=== PATIENT | female | born 1995 | race Caucasian/White ===

== ENCOUNTER → 2017-06-23 15:28 | Outpatient (CLI) | payer OTHER | END | disposition home or self-care (01) | LOC: D.RT 15:28 | DX: R00.0 Tachycardia, unspecified (principal) ==

== ENCOUNTER → 2017-10-28 15:15 | Outpatient (CLI) | payer OTHER ==
[2017-10-28 15:52] LABS: APPEARANCE CLEAR (CLEAR); BILIRUBIN NEGATIVE (NEGATIVE); COLOR YELLOW (YELLOW); GLUCOSE NEGATIVE (NEGATIVE); KETONE NEGATIVE (NEGATIVE); NITRITE NEGATIVE (NEGATIVE); PROTEIN NEGATIVE (NEGATIVE); SPECIFIC GRAVITY 1.025 (1.005-1.020); UROBILINOGEN NORMAL (NORMAL)
== END | disposition home or self-care (01) ==
LOC: D.LDO 15:15
PROVIDERS: Obstetrics & Gynecology
DX: O16.9 Unspecified maternal hypertension, unspecified trimester (principal); Z3A.00 Weeks of gestation of pregnancy not specified

== ENCOUNTER → 2017-11-19 11:58 | Outpatient (CLI) | payer OTHER ==
[~2017-11-19 11:58] MED LIST: HYDROCODONE-APA1 TAB PO; IBUPROFEN600 MG PO; PRENATAL COMPLE1 TAB PO
[2017-12-03 12:56] VITALS: BMI 37.1
== END | disposition home or self-care (01) ==
LOC: D.LDO 11:58
DX: O16.3 Unspecified maternal hypertension, third trimester (principal); Z3A.37 37 weeks gestation of pregnancy

== ENCOUNTER → 2017-11-24 14:23 | Outpatient (CLI) | payer OTHER ==
[2017-12-03 12:56] VITALS: BMI 37.1
== END | disposition home or self-care (01) ==
LOC: D.LDO 14:23
DX: O16.3 Unspecified maternal hypertension, third trimester (principal); Z3A.37 37 weeks gestation of pregnancy

== ENCOUNTER → 2017-11-27 15:58 | Outpatient (CLI) | payer OTHER ==
[2017-12-03 12:56] VITALS: BMI 37.1
== END | disposition home or self-care (01) ==
LOC: D.LDO 15:58
DX: O16.3 Unspecified maternal hypertension, third trimester (principal); Z3A.38 38 weeks gestation of pregnancy

== ENCOUNTER 2017-12-03 10:37 | Inpatient (IN) | payer OTHER ==
[~2017-12-03] VITALS: Ht 172.7 cm; Wt 110.9 kg
--- NOTE | ~2017-12-03 | OP ---
PATIENT NAME: PASQUALE ALVARADO MEDICAL RECORD: [id number] :95 LOCATION:[id number] ADMISSION DATE:12/03/17 SURGEON: CHALO VELASQUEZ MD DATE OF OPERATION: 12/04/2017 PREOPERATIVE DIAGNOSES: 1. Gestational hypertension at 39 weeks. 2. Failed induction of labor. POSTOPERATIVE DIAGNOSES: 1. Gestational hypertension at 39 weeks. 2. Failed induction of labor. PROCEDURE: A primary low transverse section. SURGEON: Chalo Velasquez MD ESTIMATED BLOOD LOSS: 1000 cc. INTRAVENOUS FLUIDS: Per anesthesia record. ANESTHESIA: Regional. SPECIMENS: Placenta and cord for gases. COMPLICATIONS: None apparent. FINDINGS: 1. Viable male , Apgars 9 at 1 and 9 at 5. 2. Placenta delivered, manually intact, 3-vessel cord noted. 3. Normal adnexa bilaterally. DESCRIPTION OF PROCEDURE: The patient was taken to the operating room where regional anesthesia was achieved without difficulty. The patient was then prepped and draped in normal sterile fashion in the dorsal supine position. SCDs were on and functioning normally. A Swann catheter had been in place and was draining freely. Following prep and drape, a Pfannenstiel skin incision was made, extended downward to the underlying subcutaneous fat to level of the fascia which was then excised in midline and extended bilaterally using the Velazquez scissors. Superior and inferior aspects of the fascial incision were then grasped with Lynn clamps times 2, tented upward, and sharply dissected from the underlying rectus muscle using the Velazquez scissors and Bovie cautery. Rectus muscles were then bluntly in the midline and the peritoneum entered sharply at the superior aspect of the incision. Peritoneal incision was extended bilaterally using the Metzenbaum scissors and a bladder blade was placed into the pelvis. A bladder flap was created by excising the anterior leaf of the broad ligament across the lower uterine segment using the Metzenbaum scissors. The bladder blade was then replaced over the bladder flap. A low transverse incision was made on the uterus which was then extended superiorly and inferiorly using the Pelosi method. The infant's head was then delivered atraumatically followed by the body. was bulb suctioned upon delivery. Cord was clamped times 2, cut, and was handed to awaiting nursery team. Cord was then obtained for gases and the placenta was removed manually intact, 3-vessel cord was noted. The uterus was then exteriorized, cleared of all clots and debris and vigorously massaged until good uterine tone was noted. Uterus OPERATIVE REPORT [id number] PASQUALE ALVARADO was then repaired using 0 Vicryl in a running locked fashion times 2 with good hemostasis noted. Posterior cul-de-sac was then thoroughly irrigated and uterus was replaced into the pelvis. The uterine incision was again found to be hemostatic and the anterior cul-de-sac was then thoroughly irrigated. Counts were correct times 2 for needles, sponges, and instruments. The fascia was repaired with 0 loop PDS times 1 and skin repaired with ethel. The patient tolerated procedure well, transferred to postanesthesia recovery stable without incident. TRANSINT:[id number] Voice Confirmation ID: [id number] DOCUMENT ID: [id number] CHALO VELASQUEZ MD at 1723 CC: [id number] DICTATION DATE: 12/27/17626 LOADMASTER: 12/27/17 1132 DIS IN 12/06/17 [facility] [address] [place] [address]
--- NOTE | ~2017-12-03 | OP ---
PATIENT NAME: PASQUALE ALVARADO MEDICAL RECORD: [id number] :95 LOCATION:[id number] ADMISSION DATE:12/03/17 SURGEON: CHALO VELASQUEZ MD DATE OF OPERATION: 12/04/2017 PREOPERATIVE DIAGNOSES: 1. Gestational hypertension at 39 weeks. 2. Asthma. 3. Suspected borderline macrosomia. 4. Failed induction of labor. PROCEDURE: A primary low transverse section. SURGEON: Chalo Velasquez MD ANESTHESIA: Regional. INTRAVENOUS FLUIDS: Per anesthesia record. ESTIMATED BLOOD LOSS: 1000 cc. SPECIMENS: Placenta and cord for gases. FINDINGS: 1. A viable male infant, Apgars 9 at 1 and 9 at 5. 2. Placenta delivered manually intact, 3-vessel cord noted. 3. Grossly normal adnexa bilaterally. COMPLICATIONS: None apparent. PROCEDURE IN DETAIL: The patient was taken to the operating room where regional anesthesia was achieved without difficulty. The patient was then prepped and draped in normal sterile fashion in the dorsal supine position. SCDs were on and functioning normally. A Swann catheter had been placed and was draining freely. The patient was then prepped and draped. The anesthetic field was then checked and found to be adequate. A Pfannenstiel skin incision was then made, extended downward to the underlying subcutaneous fat to the level of the fascia, which was excised in the midline using the scalpel. This was then extended bilaterally using the Velazquez scissors. The superior and inferior aspects of the fascial incision were then grasped with Lynn clamps times 2, tented upward, and sharply dissected from the underlying rectus muscle using the Bovie cautery and the Velazquez scissors. The rectus muscles were then bluntly in the midline and the peritoneum was entered at the superior aspect of the incision using the Metzenbaum scissors. Careful dissection was then performed of the peritoneum under direct visualization of the bladder. A bladder blade was then placed into the pelvis and a bladder flap created by excising the anterior leaf of the broad ligament across the lower uterine segment. A bladder flap was then fully developed and the bladder blade replaced. A low transverse incision was made and then extended using the Pelosi method. The vertex was then delivered atraumatically followed by the body. The infant was bulb suctioned upon delivery of the head. Cord was clamped times 2, cut, and the was handed to the awaiting nursery team. Cord was then obtained for gases and the placenta was delivered manually intact, 3-vessel cord was noted. The uterus was then exteriorized, cleared of all clots and debris and then vigorously massaged until good uterine tone was noted. The uterine incision was repaired with 0 OPERATIVE REPORT [id number] PASQUALE ALVARADO Vicryl in a running locked fashion times 2 with good hemostasis noted. Posterior cul-de-sac was then thoroughly irrigated and uterus was placed into the pelvis. Anterior cul-de-sac was then thoroughly irrigated and the uterine incision was again found to be hemostatic. The fascia was then repaired with 0 loop PDS times 1 following correct counts of sponges, needles and instruments. The skin was then repaired with ethel. The patient tolerated the procedure well, was transferred to postanesthesia recovery stable without incident. TRANSINT:[id number] Voice Confirmation ID: [id number] DOCUMENT ID: [id number] CHALO VELASQUEZ MD at 1614 CC: [id number] DICTATION DATE: 01/10/18616 ORDER SELECTOR: 01/10/18 0809 DIS IN 12/06/17 [facility] [address] [place] [address]
[2017-12-03 12:02] LABS: BASOPHILS 0.1 % (0-2); EOSINOPHILS 0.3 % (0-7); HEMATOCRIT 31.5 % (36.0-48.0); HEMOGLOBIN 10.1 g/dL (12-16); IMMATURE GRANULOCYTES 0.7 % (0-5); LYMPHOCYTES 22.9 % (15-50); MCH 27.2 pg (26.0-34.0); MCHC 32.1 g/dL (31.0-37.0); MCV 84.7 fL (80.0-100.0); MEAN PLATELET VOLUME 10.7 fL (7.4-10.4); MONOCYTES 8.4 % (2-11); NEUTROPHILS 67.6 % (40-80); PLATELET COUNT 242 10x3/uL (130-400); RBC 3.72 10x6/uL (4.00-5.40); RDW 14.9 % (11.5-14.5); WBC 9.2 10x3/uL (4.8-10.8)
[2017-12-03 12:21] LABS: APPEARANCE CLEAR (CLEAR); BILIRUBIN NEGATIVE (NEGATIVE); COLOR YELLOW (YELLOW); GLUCOSE NEGATIVE (NEGATIVE); KETONE NEGATIVE (NEGATIVE); NITRITE NEGATIVE (NEGATIVE); PROTEIN NEGATIVE (NEGATIVE); UROBILINOGEN NORMAL (NORMAL)
[2017-12-03 12:22] LABS: BACTERIA MANY /hpf (NONE SEEN); MUCUS >1+ /lpf (NONE SEEN); RED CELLS - URINE 0-5 /hpf (0-5)
[2017-12-03 12:29] LABS: ALBUMIN 2.4 g/dL (3.4-5.0); ALKALINE PHOSPHATASE 141 U/L (46-116); ALT (SGPT) 13 U/L (10-68); BILIRUBIN - TOTAL 0.27 mg/dL (0.2-1.3); CALC OSMOLALITY 268 mosm/kg (275-300); CALCIUM 9.1 mg/dL (8.5-10.1); CARBON DIOXIDE 20.3 mmol/L (21.0-32.0); CHLORIDE - SERUM 104 mmol/L (98-107); CREATININE - SERUM 0.6 mg/dL (0.6-1.3); GLUCOSE 75 mg/dL (74-106); POTASSIUM - SERUM 4.2 mmol/L (3.5-5.1); PROTEIN - SERUM 6.6 g/dL (6.4-8.2); SODIUM 136 mmol/L (136-145); UREA NITROGEN 6 mg/dL (7-18); eGFR NON AFRICAN AMERICAN > 90 mL/min (90-120)
[2017-12-03 12:56] VITALS: BP 144/85; Ht 172.7 cm; Wt 110.9 kg
[2017-12-04] VITALS (13 sets, daily range): BP systolic 120–147; BP diastolic 61–78
[2017-12-04 06:14] LABS: RAPID PLASMA REAGIN Non Reactive (Non Reactive)
[2017-12-04 20:11] LABS: BASOPHILS 0.1 % (0-2); EOSINOPHILS 0.3 % (0-7); HEMATOCRIT 28.3 % (36.0-48.0); IMMATURE GRANULOCYTES 0.5 % (0-5); LYMPHOCYTES 23.3 % (15-50); MCH 26.8 pg (26.0-34.0); MCHC 31.8 g/dL (31.0-37.0); MCV 84.2 fL (80.0-100.0); MEAN PLATELET VOLUME 10.3 fL (7.4-10.4); MONOCYTES 7.6 % (2-11); NEUTROPHILS 68.2 % (40-80); RBC 3.36 10x6/uL (4.00-5.40); RDW 14.9 % (11.5-14.5); WBC 10.9 10x3/uL (4.8-10.8)
[2017-12-04 20:15] LABS: PLATELET COUNT 174 10x3/uL (130-400)
[2017-12-05 02:30] VITALS: BP 127/73
[2017-12-05] MEDS ORDERED: PRENATAL COMPLE1 TAB PO (05:59)
[2017-12-05 06:01] LABS: BASOPHILS 0.1 % (0-2); EOSINOPHILS 0.4 % (0-7); HEMOGLOBIN 8.7 g/dL (12-16); IMMATURE GRANULOCYTES 0.3 % (0-5); LYMPHOCYTES 23.9 % (15-50); MCH 27.1 pg (26.0-34.0); MCHC 32.2 g/dL (31.0-37.0); MCV 84.1 fL (80.0-100.0); MEAN PLATELET VOLUME 10.2 fL (7.4-10.4); MONOCYTES 8.7 % (2-11); NEUTROPHILS 66.6 % (40-80); PLATELET COUNT 167 10x3/uL (130-400); RBC 3.21 10x6/uL (4.00-5.40); WBC 9.2 10x3/uL (4.8-10.8)
[2017-12-05 07:23] VITALS: BP 132/83
[2017-12-05 13:32] VITALS: BP 126/68
[2017-12-05 17:44] VITALS: BP 126/73
[2017-12-05 19:56] VITALS: BP 135/83
[2017-12-06] MEDS ORDERED: HYDROCODONE-APA1 TAB PO (07:54)
[2017-12-06] MEDS ORDERED: IBUPROFEN600 MG PO (07:55)
[2017-12-06 08:03] VITALS: BP 133/72
== END 2017-12-06 11:50 | disposition home or self-care (01) | DRG 766 ==
LOC: D.LDO 10:37 → D.LD 11:55
PROVIDERS: Obstetrics & Gynecology
PROC: 10D00Z1 Extraction of Products of Conception, Low, Open Approach (ICD-10-PCS; principal; 2017-12-04 09:00)
DX: O61.0 Failed medical induction of labor (principal); O13.4 Gestational [pregnancy-induced] hypertension without significant proteinuria, complicating childbirth; O99.214 Obesity complicating childbirth; O99.824 Streptococcus B carrier state complicating childbirth; O36.63X0 Maternal care for excessive fetal growth, third trimester, not applicable or unspecified; Z3A.39 39 weeks gestation of pregnancy; Z37.0 Single live birth

== ENCOUNTER → 2019-05-22 10:14 | Outpatient (CLI) | payer OTHER ==
[2017-12-03 12:56] VITALS: BMI 37.1
[~2019-05-22 10:14] MED LIST changes: +NORMODYNE / TR200 MG PO
[2019-05-22 10:33] LABS: PROTEIN - URINE 7.3 mg/dL (0.0-11.9)
== END | disposition home or self-care (01) ==
LOC: D.LDO 10:14
PROVIDERS: ATTEND Obstetrics & Gynecology
DX: O26.899 Other specified pregnancy related conditions, unspecified trimester (principal); Z3A.00 Weeks of gestation of pregnancy not specified

== ENCOUNTER → 2019-06-01 15:35 | Outpatient (CLI) | payer OTHER ==
[2017-12-03 12:56] VITALS: BMI 37.1
== END | disposition home or self-care (01) ==
LOC: D.LDO 15:35
PROVIDERS: ATTEND Obstetrics & Gynecology
DX: O26.899 Other specified pregnancy related conditions, unspecified trimester (principal); Z3A.00 Weeks of gestation of pregnancy not specified; R03.0 Elevated blood-pressure reading, without diagnosis of hypertension

== ENCOUNTER → 2019-06-21 18:09 | Outpatient (CLI) | payer OTHER ==
[2017-12-03 12:56] VITALS: BMI 37.1
[~2019-06-21 18:09] MED LIST changes: +NORMODYNE / TR100 MG PO
== END | disposition home or self-care (01) ==
LOC: D.LDO 18:09
PROVIDERS: ATTEND Obstetrics & Gynecology
DX: O36.8130 Decreased fetal movements, third trimester, not applicable or unspecified (principal); Z3A.28 28 weeks gestation of pregnancy

== ENCOUNTER → 2019-07-02 09:51 | Outpatient (CLI) | payer OTHER ==
[2017-12-03 12:56] VITALS: BMI 37.1
== END | disposition home or self-care (01) ==
LOC: D.LDO 09:51
PROVIDERS: ATTEND Obstetrics & Gynecology
DX: O16.9 Unspecified maternal hypertension, unspecified trimester (principal)

== ENCOUNTER → 2019-07-06 09:49 | Outpatient (CLI) | payer OTHER ==
[2017-12-03 12:56] VITALS: BMI 37.1
== END | disposition home or self-care (01) ==
LOC: D.LDO 09:49
PROVIDERS: ATTEND Obstetrics & Gynecology
DX: O16.3 Unspecified maternal hypertension, third trimester (principal); Z3A.30 30 weeks gestation of pregnancy

== ENCOUNTER → 2019-07-09 08:12 | Outpatient (CLI) | payer OTHER ==
[2017-12-03 12:56] VITALS: BMI 37.1
== END | disposition home or self-care (01) ==
LOC: D.LDO 08:12
PROVIDERS: ATTEND Obstetrics & Gynecology
DX: O35.9XX0 Maternal care for (suspected) fetal abnormality and damage, unspecified, not applicable or unspecified (principal)

== ENCOUNTER → 2019-07-13 09:18 | Outpatient (CLI) | payer OTHER ==
[2017-12-03 12:56] VITALS: BMI 37.1
== END | disposition home or self-care (01) ==
LOC: D.LDO 09:18
PROVIDERS: ATTEND Obstetrics & Gynecology
DX: O16.3 Unspecified maternal hypertension, third trimester (principal)

== ENCOUNTER → 2019-07-16 08:50 | Outpatient (CLI) | payer OTHER ==
[2017-12-03 12:56] VITALS: BMI 37.1
== END | disposition home or self-care (01) ==
LOC: D.LDO 08:50
PROVIDERS: ATTEND Obstetrics & Gynecology
DX: O35.9XX0 Maternal care for (suspected) fetal abnormality and damage, unspecified, not applicable or unspecified (principal)

== ENCOUNTER 2019-07-20 08:40 | Outpatient (CLI) | payer OTHER ==
[2017-12-03 12:56] VITALS: BMI 37.1
== END 2019-07-20 09:30 | disposition home or self-care (01) ==
LOC: D.LDO 08:40
PROVIDERS: ATTEND Obstetrics & Gynecology
DX: O10.919 Unspecified pre-existing hypertension complicating pregnancy, unspecified trimester (principal)

== ENCOUNTER → 2019-07-23 08:01 | Outpatient (CLI) | payer OTHER ==
[2017-12-03 12:56] VITALS: BMI 37.1
== END | disposition home or self-care (01) ==
LOC: D.LDO 08:01
PROVIDERS: ATTEND Obstetrics & Gynecology
DX: O10.919 Unspecified pre-existing hypertension complicating pregnancy, unspecified trimester (principal)

== ENCOUNTER → 2019-07-27 10:34 | Outpatient (CLI) | payer OTHER ==
[2017-12-03 12:56] VITALS: BMI 37.1
== END | disposition home or self-care (01) ==
LOC: D.LDO 10:34
PROVIDERS: ATTEND Obstetrics & Gynecology
DX: O16.3 Unspecified maternal hypertension, third trimester (principal); Z3A.33 33 weeks gestation of pregnancy

== ENCOUNTER → 2019-07-29 19:49 | Outpatient (CLI) | payer OTHER ==
[2017-12-03 12:56] VITALS: BMI 37.1
[2019-07-29 20:17] LABS: BASOPHILS 0.1 % (0-2); EOSINOPHILS 1.2 % (0-7); HEMOGLOBIN 10.2 g/dL (12-16); IMMATURE GRANULOCYTES 0.7 % (0-5); LYMPHOCYTES 25.6 % (15-50); MCH 28.4 pg (26.0-34.0); MCHC 31.9 g/dL (31.0-37.0); MCV 89.1 fL (80.0-100.0); MEAN PLATELET VOLUME 9.8 fL (7.4-10.4); MONOCYTES 8.9 % (2-11); NEUTROPHILS 63.5 % (40-80); PLATELET COUNT 259 10x3/uL (130-400); RBC 3.59 10x6/uL (4.00-5.40); WBC 9.5 10x3/uL (4.8-10.8)
[2019-07-29 20:18] LABS: APPEARANCE CLEAR (CLEAR); BILIRUBIN NEGATIVE (NEGATIVE); COLOR YELLOW (YELLOW); GLUCOSE NEGATIVE (NEGATIVE); KETONE NEGATIVE (NEGATIVE); NITRITE NEGATIVE (NEGATIVE); PROTEIN NEGATIVE (NEGATIVE); SPECIFIC GRAVITY 1.025 (1.005-1.020); UROBILINOGEN NORMAL (NORMAL)
[2019-07-29 20:25] LABS: CALC OSMOLALITY 279 mosm/kg (275-300); CALCIUM 8.9 mg/dL (8.5-10.1); CARBON DIOXIDE 26.5 mmol/L (21.0-32.0); CHLORIDE - SERUM 105 mmol/L (98-107); CREATININE - SERUM 0.7 mg/dL (0.6-1.3); GLUCOSE 106 mg/dL (74-106); SODIUM 141 mmol/L (136-145); UREA NITROGEN 9 mg/dL (7-18); eGFR NON AFRICAN AMERICAN > 90 mL/min (90-120)
[2019-07-29 20:31] LABS: ALBUMIN 2.6 g/dL (3.4-5.0); ALKALINE PHOSPHATASE 94 U/L (46-116); ALT (SGPT) 15 U/L (10-68); BILIRUBIN - DIRECT 0.08 mg/dL (0.00-0.30); BILIRUBIN - INDIRECT 0.21 mg/dL (0.00-1.00); BILIRUBIN - TOTAL 0.29 mg/dL (0.2-1.3); PROTEIN - SERUM 6.8 g/dL (6.4-8.2); URIC ACID 4.3 mg/dL (2.6-7.2)
== END | disposition home or self-care (01) ==
LOC: D.LDO 19:49
PROVIDERS: ATTEND Obstetrics & Gynecology
DX: O26.893 Other specified pregnancy related conditions, third trimester (principal); Z3A.34 34 weeks gestation of pregnancy; R42 Dizziness and giddiness; H53.8 Other visual disturbances

== ENCOUNTER → 2019-08-02 15:36 | Outpatient (CLI) | payer OTHER ==
[2017-12-03 12:56] VITALS: BMI 37.1
== END | disposition home or self-care (01) ==
LOC: D.LDO 15:36
PROVIDERS: ATTEND Obstetrics & Gynecology
DX: O10.919 Unspecified pre-existing hypertension complicating pregnancy, unspecified trimester (principal)

== ENCOUNTER → 2019-08-06 08:11 | Outpatient (CLI) | payer OTHER ==
[2017-12-03 12:56] VITALS: BMI 37.1
== END | disposition home or self-care (01) ==
LOC: D.LDO 08:11
PROVIDERS: ATTEND Obstetrics & Gynecology
DX: O16.3 Unspecified maternal hypertension, third trimester (principal); Z3A.35 35 weeks gestation of pregnancy

== ENCOUNTER → 2019-08-10 09:43 | Outpatient (CLI) | payer OTHER ==
[2017-12-03 12:56] VITALS: BMI 37.1
== END | disposition home or self-care (01) ==
LOC: D.LDO 09:43
PROVIDERS: ATTEND Obstetrics & Gynecology
DX: O35.9XX0 Maternal care for (suspected) fetal abnormality and damage, unspecified, not applicable or unspecified (principal)

== ENCOUNTER → 2019-08-17 09:39 | Outpatient (CLI) | payer OTHER ==
[2017-12-03 12:56] VITALS: BMI 37.1
== END | disposition home or self-care (01) ==
LOC: D.LDO 09:39
PROVIDERS: ATTEND Obstetrics & Gynecology
DX: O16.3 Unspecified maternal hypertension, third trimester (principal); Z3A.36 36 weeks gestation of pregnancy

== ENCOUNTER 2019-08-20 07:30 | Inpatient (IN) | payer OTHER ==
[~2019-08-20] VITALS: Ht 172.7 cm; Wt 112.3 kg
[2019-08-27] VITALS (10 sets, daily range): BP systolic 109–129; BP diastolic 55–76; Ht 172.7 cm; Wt 112.3 kg
[2019-08-27] MEDS ORDERED: AMOXICILLIN500 M1 PO (05:22)
[2019-08-27 06:19] LABS: HEMATOCRIT 31.3 % (36.0-48.0); HEMOGLOBIN 10.3 g/dL (12-16); MCH 27.9 pg (26.0-34.0); MCHC 32.9 g/dL (31.0-37.0); MCV 84.8 fL (80.0-100.0); RBC 3.69 10x6/uL (4.00-5.40); RDW 14.4 % (11.5-14.5); WBC 9.6 10x3/uL (4.8-10.8)
[2019-08-27 07:59] LABS: APPEARANCE HAZY (CLEAR); BACTERIA MODERATE /hpf (NEGATIVE); BILIRUBIN NEGATIVE (NEGATIVE); COLOR YELLOW (YELLOW); EPITHELIAL CELLS 0-5 /hpf (0-5); GLUCOSE NEGATIVE (NEGATIVE); KETONE NEGATIVE (NEGATIVE); NITRITE NEGATIVE (NEGATIVE); PROTEIN NEGATIVE (NEGATIVE); RED CELLS - URINE NONE SEEN /hpf (0-5); SPECIFIC GRAVITY 1.025 (1.005-1.020); UROBILINOGEN NORMAL (NORMAL); WHITE CELLS - URINE OCC /hpf (NEGATIVE)
--- NOTE | 2019-08-27 08:49 | NUR ---
0839 BABY 0840 PLACENTA
--- NOTE | 2019-08-27 10:00 | NUR ---
RECEIVED PT FROM VIA BED TO ROOM 1278. BED LOCKED AND PLACED IN LOW POSITION. VSS. HRRR WITHOUT AUDIBLE MURMUR. BBS CLEAR. BS HYPOACTIVE. ABDOMEN SOFT/NON-DISTENDED. FUNDUS FIRM AT U/U. RUBRA LOCHIA SMALL AMT. ABDOMINAL DRESSING DRY WITHOUT DRAINAGE NOTED. NEG HOMANS' SIGN. PPP. MILD, NON-PITTING EDEMA NOTED TO BLE. SCDS ON BLE. PUMP ON. STOREY TO GRAVIY DRAINING DARK, YELLOW URINE. PIV SITE CLEAR TO RIGHT WRIST. NS WITH PITOCIN 20 UNITS INFUSING AT 125 ML/HR. PT DENIES PAIN. ICE PACK TO INCISION. SR UP X 2. CALL LIGHT IN REACH.
--- NOTE | 2019-08-27 10:14 | NUR ---
DILAUDID WARP TYING MACHINE TENDER STARTED. PT INSTRUCTED ON MED AND USE OF BUTTON. VERBALIZES UNDERSTANDING.
--- NOTE | 2019-08-27 11:30 | NUR ---
FUNDUS FIRM AT U/1. RUBRA LOCHIA SMALL AMT. NO CLOTS EXPRESSED. PERIPADS CHANGED. PT DENIES PAIN OR NEEDS.
--- NOTE | 2019-08-27 12:44 | NUR ---
PT SITTING UP IN BED. CONSUMING CLEAR LIQUID DIET. TOLERATING WELL. DENIES C/O OR NEEDS.
[2019-08-27 13:54] LABS: BASOPHILS 0.1 % (0-2); EOSINOPHILS 0.3 % (0-7); HEMATOCRIT 30.8 % (36.0-48.0); HEMOGLOBIN 9.8 g/dL (12-16); IMMATURE GRANULOCYTES 0.6 % (0-5); LYMPHOCYTES 22.3 % (15-50); MCH 27.2 pg (26.0-34.0); MCHC 31.8 g/dL (31.0-37.0); MCV 85.6 fL (80.0-100.0); MEAN PLATELET VOLUME 9.9 fL (7.4-10.4); MONOCYTES 5.2 % (2-11); NEUTROPHILS 71.5 % (40-80); PLATELET COUNT 216 10x3/uL (130-400); RDW 14.4 % (11.5-14.5)
[2019-08-27 14:02] LABS: WBC 12.1 10x3/uL (4.8-10.8)
--- NOTE | 2019-08-27 14:32 | NUR ---
PERICARE DONE. FUNDUS FIRM AT U/1. RUBRA LOCHIA SMALL AMT. CHUX AND PERIPADS CHANGED. PT MOVES WELL IN BED. ABDOMINAL DRESSING DRY WITHOUT DRAINAGE NOTED. FRESH ICE PACK TO INCISION.
--- NOTE | 2019-08-27 15:43 | NUR ---
PT C/O ABDOMINAL CRAMPING OF "3" ON 0-10 PAIN SCALE. TORADOL 30 MG GIVEN SIVP OVER 2 MINUTES. PT INSTRUCTED ON MED. VERBALIZES UNDERSTANDING.
--- NOTE | 2019-08-27 16:30 | NUR ---
PIV SITE WITH EDEMA NOTED. CATHELON INTACT. PRESSURE BANDAGE TO SITE.
--- NOTE | 2019-08-27 16:55 | NUR ---
PIV RE-SITED TO RIGHT HAND WITH 18 GAUGE CATHELON X 1 VENIPUNCTURE. PT JENNY WELL.
--- NOTE | 2019-08-27 18:57 | NUR ---
FUNDUS FIRM AT U/1. RUBRA LOCHIA SMALL AMT. PERICARE DONE. PERIPADS CHANGED. PT MOVES WELL IN BED. I/O COMPLETED. FRESH ICE PACK TO INCISION.
--- NOTE | 2019-08-27 19:19 | NUR ---
BEDSIDE REPORT RECEIVED FROM OFF GOING NURSE SAMEERA NIEVES. PT RESTING IN BED. DENIES ANY COMPLAINTS OR NEEDS AT THIS TIME. INSTRUCTED PT TO NOTIFY NURSE WITH ANY PROBLEMS, NEEDS, OR CONCERNS. VERBALIZED UNDERSTANDING. BED IN LOW POSITION. SR UP X2. CALL LIGHT AND DILAUDID GERIATRIC AIDE BUTTON WITHIN PTS REACH.
--- NOTE | 2019-08-27 19:40 | NUR ---
PT RESTING IN BED. ASSESSMENT COMPLETE PER FLOWSHEET. VSS. DILAUDID STEAMER BLOCKER IN USE. PT REPORTS HER PAIN IS 2/10 AND SHE IS COMFORTABLE. DISCUSSED PRN TORDOL FOR BREAKTHROUGH PAIN. BBS CLEAR. ABD SOFT. HYPOACTIVE BS X4 QUADRANTS. PT REPORTS SHE HAS NOT PASSED FLATUS. LOW TRANSVERSE ABD INCISION COVERED WITH DRESSING C/D/I. FUNDUS FIRM AND 1 BELOW UMBILICUS. SMALL AMOUNT OF LOCHIA NOTED TO PERIPAD. FC IN PLACE AND DRAINING CONCENTRATED YELLOW URINE. FC SECURED WITH CATH SECURE TO PTS RIGHT LEG. TRACE AMOUNT OF EDEMA TO BLE. SCDS ON AND WORKING PROPERLY. IV TO RIGHT HAND PATENT AND INFUSING NS WITH 20 UNITS OF PIT AT 125ML/HR. IS AT BEDSIDE. PT REPORTS THAT SHE HAS BEEN USING IT EVERY HOUR. POC DISCUSSED. QUESTIONS ANSWERED. INSTRUCTED TO NOTIFY NURSE WITH ANY PROBLEMS, NEEDS, OR CONCERNS. VERBALIZED UNDERSTANDING. BED IN LOW POSITION. SR UP X2. CALL LIGHT AND DILAUDID STEAMER BLOCKER BUTTON WITHIN PTS REACH.
--- NOTE | 2019-08-27 20:35 | NUR ---
PT RESTING IN BED. S/O IN ROOM. CHICKEN BROTH, JELLO, AND [place] DRINK PROVIDED PER PT REQUEST. PT DENIES ANY COMPLAINTS AT THIS TIME. INSTRUCTED PT TO NOTIFY NURSE WITH ANY PROBLEMS, NEEDS, OR CONCERNS. VERBALIZED UNDERSTANDING. BED IN LOW POSITION. SR UP X2. CALL LIGHT AND ORACLE FUSION MIDDLEWARE DEVELOPER BUTTON WITHIN PTS REACH.
--- NOTE | 2019-08-27 21:10 | NUR ---
PT RESTING IN BED. DENIES ANY COMPLAINTS OR NEEDS AT THIS TIME. INSTRUCTESD PT TO NOTIFY NURSE WITH ANY PROBLEMS, NEEDS, OR CONCERNS. VERBALIZED UNDERSTANDING.
--- NOTE | 2019-08-27 21:43 | NUR ---
TORADOL 30MG GIVEN SIVP. PT INSTRUCTED TO NOTIFY NURSE IS MEDICATION NOT EFFECTIVE OR WITH ANY OTHER PROBLEMS, NEEDS, OR CONCERNS. VERBALIZED UNDERSTANDING. BED IN LOW POSITION. SR UP X2. CALL LIGHT AND PREMIX CONCRETE BATCHER BUTTON WITHIN PTS REACH.
--- NOTE | 2019-08-27 22:40 | NUR ---
PT RESTING IN BED. NO DISTRESS NOTED. DENIES ANY COMPLAINTS OR NEEDS AT THIS TIME. INSTRUCTED PT TO NOTIFY NURSE WITH ANY PROBLEMS, NEEDS, OR CONCERNS, VERBALIZED UNDERSTANDING. BED IN LOW POSITION. SR UP X2. CALL LIGHT WITHIN PTS REACH.
--- NOTE | 2019-08-27 23:20 | NUR ---
PT RESTING IN BED PUMPING BREAST AT THIS TIME. DENIES ANY COMPLAINTS. WATER PITCHER FILLED. INSTRUCTED PT TO NOTIFY NURSE WITH ANY PROBLEMS, NEEDS, OR CONCERNS. VERBALIZED UNDERSTANDING. BED IN LOW POSITION. SR UP X2. CALL LIGHT AND SUNGLASS CLIP ATTACHER BUTTON WITHIN PTS REACH.
[2019-08-28 00:15] VITALS: BP 127/70
--- NOTE | 2019-08-28 00:15 | NUR ---
PT RESTING IN BED. VSS. PT DENIES ANY COMPLAINTS OR NEEDS. FUNDUS FIRM AND 2 BELOW UMBILICUS. SMALL AMOUNT OF LOCHIA NOTED ON PERIPAD. PERIPAD CHANGED. STOREY CARE DONE. FRESH ICE PACK PLACED TO ABD INSION SITE. DRESSING C/D/I. IV PATENT. NO REDNESS OR TENDERNESS NOTED TO SITE. PT USING IS AT THIS TIME. PT INSTRUCTED TO NOTIFY NURSE WITH ANY PROBLEMS, NEEDS, OR CONCERNS. VERBALIZED UNDERSTANDING. BED IN LOW POSITION. SR UP X2. CALL LIGHT AND BUFFER NICKEL BUTTON WITHIN PTS REACH.
--- NOTE | 2019-08-28 01:52 | NUR ---
PT RESTING IN BED. NO DISTRESS NOTED. NEW BAG NS WITH 20 UNITS PIT HUNG. NO REQUEST MADE. INSTRUCTED PT TO NOTIFY NURSE WITH ANY PROBLEMS, NEEDS, OR CONCERNS. VERBALIZED UNDERSTANDING. BED IN LOW POSITION. SR UP X2. CALL LIGHT AND COMMODITIES BROKER BUTTON WITHIN PTS REACH.
--- NOTE | 2019-08-28 03:19 | NUR ---
PT RESTING IN BED. NO DISTRESS NOTED. WATER PITCHER FILLED. INSTRUCTED PT TO NOTIFY NURSE WITH ANY PROBLEMS, NEEDS, OR CONCERNS, VERBALIZED UNDERSTANDING. BED IN LOW POSITION. SR UP X2. CALL LIGHT AND CHILDHOOD DEVELOPMENT TEACHER BUTTON WITHIN PTS REACH.
[2019-08-28 03:53] VITALS: BP 114/71
--- NOTE | 2019-08-28 03:53 | NUR ---
PT RESTING IN BED. VSS. TORADOL GIVEN SIVP PER PT REQUEST. FUNDUS FIRM AT 2 BELOW UMBILICUS. SMALL AMOUNT OF LOCHIA NOTED ON PERIPAD. PERIPAD CHANGED. FRESH ICE PACK PLACED TO ABD INCISION. DRESSING C/D/I. WATER PITCHER FILLED. INSTRUCTED PT TO NOTIFY NURSE WITH ANY PROBLEMS, NEEDS, OR CONCERNS. VERBALIZED UNDERSTANDING. BED IN LOW POSITION. SR UP X2. CALL LIGHT AND [place] REO BUTTON WITHIN PTS REACH.
--- NOTE | 2019-08-28 04:15 | NUR ---
NEW DILAUDID LIQUID FLOOR AND WALL APPLIER VIAL HUNG, IV SITE PATENT AND WITHOUT REDNESS OR TENDERNESS.
--- NOTE | 2019-08-28 04:53 | NUR ---
PT CALLED OUT STATING HER IV WAS LEAKING AT THE PUMP. RN TO PTS ROOM AND OBSERVED DILAUDID LEAKING FROM PUMP WHEN PT PUSHED BUTTON. CHARGE NURSE ON DUTY ALSO WITNESSED THIS. NEW DILAUDID VIAL PLACED IN FRONT END DEVELOPER PUMP AND INFUSED WITHOUT ANY PROBLEMS. DILAUDID VIAL THAT HAD BEEN HUNG AT 0415 WAS FOUND TO BE DEFECTIVE. IT WAS REMOVED AND 25ML OF MEDICATION WAS WASTED IN THE PHARMACY DESTROYER. WILL INFORM PHARMACY OF THE DEFECTIVE VIAL. INSTRUCTED PT TO NOTIFY NURSE WITH ANY OTHER PROBLEMS, NEEDS, OR CONCERNS. VERBALIZED UNDERSTANDING.
--- NOTE | 2019-08-28 05:58 | NUR ---
PT RESTING IN BED WITH EYES CLOSED. NO DISTRESS NOTED. BED IN LOW POSITION. SR UP X2. CALL LIGHT AND TUBE BUILDER BUTTON WITHIN PTS REACH.
[2019-08-28 07:02] LABS: BASOPHILS 0.1 % (0-2); EOSINOPHILS 0.9 % (0-7); HEMATOCRIT 29.9 % (36.0-48.0); HEMOGLOBIN 9.6 g/dL (12-16); IMMATURE GRANULOCYTES 0.3 % (0-5); LYMPHOCYTES 21.7 % (15-50); MCH 27.6 pg (26.0-34.0); MCHC 32.1 g/dL (31.0-37.0); MCV 85.9 fL (80.0-100.0); MEAN PLATELET VOLUME 9.9 fL (7.4-10.4); MONOCYTES 7.6 % (2-11); NEUTROPHILS 69.4 % (40-80); RBC 3.48 10x6/uL (4.00-5.40); RDW 14.6 % (11.5-14.5); WBC 9.6 10x3/uL (4.8-10.8)
[2019-08-28 07:12] LABS: PLATELET COUNT 169 10x3/uL (130-400)
[2019-08-28 07:21] VITALS: BP 138/80
--- NOTE | 2019-08-28 07:21 | NUR ---
ASSUMED CARE OF THIS PATIENT LAYING IN SEMI FOWLERS POSITIONN. ALERT AND ORIENTED. SHIFT ASSESSMENT COMPLETED. STOREY CATH DC'D WITH 400 ML CLEAR URINE IN BAG. IV FLUIDS AND TAG MACHINE OPERATOR DC'D. SALINE RICHARD PORTS FLUSHED X 3 WITHOUT DIFFICULTY. READY TO EAT. BREAKFAST TRAY AT BEDSIDE. INFANT REMAINS IN NURSERY SECONDARY TO RESPIRATORY ISSUES. FOB OUT OF ROOM. LOCHIA RUBRA SMALL. PLANS TO BREASTFEED. PUMPING PRN. 0+ RUBELLA IMMUNE, GBS POSITIVE, 1 DAY SP C/S. POC SHOWER, AMBULATE.
--- NOTE | 2019-08-28 07:55 | NUR ---
REQUESTED PAIN MEDICATION. NORCO 10 MG GIVEN PO FOR RELIEF OF 3/10 ABDOMINAL PAIN. NO ADDITIONAL REQUESTS.
[2019-08-28 08:10] LABS: RAPID PLASMA REAGIN Non Reactive (Non Reactive)
--- NOTE | 2019-08-28 08:25 | NUR ---
UP TO SHOWER. INSTRUCTED ON CARE OF INCISION WHILE IN SHOWER. COMPLETE LINEN CHANGE DONE. FOB IN ROOM ASSISTING PT WITH SHOWER. REMAINS IN NURSERY WITH POSSIBLITY OF TRANSFER TO [facility] TODAY. WAITING ON PEDS TO ARRIVE FOR EVALUATION. PT UNAWARE AT THIS TIME. BED ON LOW, SIDE RAILS UP X 2.
--- NOTE | 2019-08-28 08:44 | NUR ---
AMBULATED TO NURSERY WITH FOB. NASAL CONGESTION NOTED, HX OF URI MASKS WORN BY PT AND FOB APPROVED BY ABBEY RN NURSERY.
--- NOTE | 2019-08-28 08:49 | NUR ---
VOIDED 650 ML YELLOW URINE PRIOR TO SHOWER.
--- NOTE | 2019-08-28 09:12 | NUR ---
CURRENTLY IN NURSERY, HAS BEEN INFORMED THAT BABY WILL BE TRANSFERED BY DR WILSON. DESIRES TO BE DC'D. DECLINES FLU VACCINE, UNSURE WHEN LAST TDAP WAS RECEIVED BUT DESIRES PRIOR TO DC. DR CHINO NOTIFIED-ORDERS RECEIVED TO DC HOME, CALL FRIDAY TO SCHEDULE STAPLE REMOVAL FOR FRIDAY AM.
[2019-08-28] MEDS ORDERED: IBUPROFEN600 MG PO (09:19)
[2019-08-28] MEDS ORDERED: HYDROCODON-ACE1 EA10 PO (09:19)
--- NOTE | 2019-08-28 10:01 | NUR ---
BACK IN ROOM FROM NURSERY. CURRENTLY SLEEPING PER FOB, EYES CLOSED, RESPIRATIONS EVEN. WILL PROVIDE DC INFORMATION AND TDAP WHEN AWAKE. SIDE RAILS UP X 2, CALL LIGHT IN REACH.
--- NOTE | 2019-08-28 10:40 | NUR ---
TDAP GIVEN IM RIGHT DELTOID WITHOUT DIFF. SALINE LOCK DC'D. DC INSTRUCTIONS COMPLETED AFTER DISCUSSING POST OP CARE, S&S INFECTION, DANGER SIGNS, MEDICATION ADMINISTRATION, PP DEPRESSION, VACCINATIONS, BREASTCARE AND FOLLOW-UP. VERBALIZED UNDERSTANDING. NO SPECIFIC QUESTIONS. SAYS SHE ALREADY HAS STAPLE REMOVAL APPOINTMENT SCHEDULED. FOB PICKING UP PRESCRIPTIONS.
--- NOTE | 2019-08-28 10:59 | NUR ---
UP TO BATHROOM TO VOID. VOIDED 600 ML YELLOW URINE. SAYS HER PAIN IS BETTER AFTER LAYING ON LEFT SIDE WITH HOB FLAT. NO REQUESTS AT PRESENT. WILL DC CIPRIANO.
--- NOTE | 2019-08-28 11:05 | NUR ---
NOTED PRELIMINARY URINE CULTURE RESULTS >100,000 GRAM NEG RODS, REPORT CALLED TO DR CHINO. HE SAYS HE WILL CALL RX IN TO PT PHARMACY OF RECORD. PT NOTIFIED. MD ALSO AWARE PT HAS BEEN TAKING AMOX 500 MG Q 8 HOURS WITH 2-3 DAYS LEFT.
--- NOTE | 2019-08-28 11:30 | NUR ---
FOB RETURNED, INFANT TRANSFERRED. PT DC'D VIA WHEELCHAIR TO CAR. HAS RX AND DC INSTRUCTIONS. ALL PERSONAL BELONGINGS REMOVED FROM ROOM. FOB DRIVING.
== END 2019-08-28 11:30 | disposition home or self-care (01) | DRG 788 ==
LOC: D.LD 08-27 05:09 → D.SDCHOLD 08-27 07:30 → D.LD 08-28 11:30
PROVIDERS: ADMIT Obstetrics & Gynecology; ATTEND Obstetrics & Gynecology
PROC: 10D00Z1 Extraction of Products of Conception, Low, Open Approach (ICD-10-PCS; principal; 2019-08-27 07:30)
DX: O10.92 Unspecified pre-existing hypertension complicating childbirth (principal); Z3A.38 38 weeks gestation of pregnancy; Z37.0 Single live birth; O99.824 Streptococcus B carrier state complicating childbirth; O99.334 Smoking (tobacco) complicating childbirth; F17.200 Nicotine dependence, unspecified, uncomplicated

== ENCOUNTER → 2019-08-24 08:30 | Outpatient (CLI) | payer OTHER ==
[2017-12-03 12:56] VITALS: BMI 37.1
== END | disposition home or self-care (01) ==
LOC: D.LDO 08:30
PROVIDERS: ATTEND Obstetrics & Gynecology
DX: O16.3 Unspecified maternal hypertension, third trimester (principal); O36.8130 Decreased fetal movements, third trimester, not applicable or unspecified; Z3A.37 37 weeks gestation of pregnancy